=== PATIENT | female | born 1955 | race Caucasian/White ===

== ENCOUNTER 2020-09-17 08:13 | Outpatient (REF) | payer MEDICARE, MEDICAID, SELFPAY ==
[2020-09-17 09:10] LABS: MANUAL DIFF FLAG NO
[2020-09-17 09:18] LABS: Basophils Percent Auto 0.4 % (0-2); Eosinophils Absolute Auto 0.1 X10*3/uL (0.0-0.4); Eosinophils Percent Auto 0.8 % (0-4); Hematocrit 44.1 % (37-47); Hemoglobin 14.6 g/dl (12.0-16.0); Imm Gran Abs Auto 0.02 X10*3/uL (0.00-0.03); Imm Gran Pct Auto 0.3 % (0.0-0.4); Lymphocytes Absolute Auto 1.6 X10*3/uL (1.2-4.9); Lymphocytes Percent Auto 21.8 % (20-40); Mean Corpuscular HGB Conc 33.1 g/dl (31.0-35.0); Mean Corpuscular Hemoglobin 30.7 pg (27.0-33.0); Mean Corpuscular Volume 92.8 fL (80-98); Mean Platelet Volume 9.7 fL (9.4-12.3); Monocytes Absolute Auto 0.4 X10*3/uL (0.1-1.2); Neutrophils Absolute Auto 5.1 X10*3/uL (2.0-8.3); Neutrophils Percent Auto 70.7 % (45-73); Platelet Count 344 X10*3/uL (160-400); Red Blood Count 4.75 X10*6/uL (4.20-5.50); Red Cell Distribution Width 12.7 % (11.0-16.0); White Blood Count 7.2 X10*3/uL (4.8-10.8)
[2020-09-17 09:38] LABS: Alanine Aminotransferase 13 U/L (0-31); Albumin Level 4.3 g/dL (3.5-5.0); Alkaline Phosphatase 54 U/L (39-117); Anion Gap 15 (12-20); Aspartate Amino Transferase 15 U/L (5-31); Bilirubin Direct 0.2 mg/dL (0.0-0.5); Bilirubin Total 0.3 mg/dL (0.0-1.0); Blood Urea Nitrogen 20 mg/dL (9-16); Calcium 9.3 mg/dL (8.4-10.2); Carbon Dioxide 25 mmol/L (22-29); Chloride 104 mmol/L (96-108); Cholesterol 177 mg/dL; Estimated Glomerular Filt Rate > 60; Glucose Fasting 129 mg/dL (60-99); HDL Cholesterol 57 mg/dL; LDL Cholesterol Calculated 109 mg/dl; Potassium 4.6 mmol/l (3.3-5.1); Sodium 139 mmol/L (135-145); Total Protein 7.1 g/dL (6.5-8.0); Triglycerides 55 mg/dL
[2020-09-17 10:01] LABS: Free T4 (Free Thyroxine) 1.05 ng/dL (0.71-1.85); Thyroid Stimulating Hormone 0.19 uIU/mL (0.32-4.0)
== END 2020-09-17 08:14 | disposition home or self-care (01) ==
LOC: HO.LAB 08:13
DX: E78.5 Hyperlipidemia, unspecified (principal); R53.83 Other fatigue
CPT/HCPCS: 36415; 80053; 80061; 80076; 82248; 84439; 84443; 85025

== ENCOUNTER 2023-05-11 09:42 | Outpatient (AMB) | payer MEDICARE, MEDICAID, SELFPAY ==
--- NOTE | 2023-05-11 09:46 | A.OFFPC_ITS ---
Vital Signs 05/11/23 09:48 Height 5 ft 3.5 in Weight 125 lb 8 oz BMI 21.9 BP 140/80 H Blood Pressure Location Lt brachial Position Sitting Pulse 108 H Pulse Source Pulse Oximeter Pulse Oximetry (%) 94 Oxygen Delivery Method Room Air Intake Visit Reasons: Medications Intake Note: Patient is here to follow up on medication review. Complained of knee pain, depression and anxiety. Rivet Catcher Required: No Green Chain Marker: Not Required per policy Accompanied by: Self / Same As Patient Allergies No Known Allergies Allergy (Verified 05/11/23 09:47) Medication List - Last Reconciled 05/11/23 by Pepito Saunders MD cyclobenzaprine 10 mg PO TID cyproheptadine 4 mg PO BID hydrocodone-acetaminophen 7.5-300 mg 1 tab PO Q8H PRN ibuprofen 800 mg PO TID lorazepam 1 mg PO BID meloxicam 15 mg PO DAILY simvastatin 40 mg PO DAILY tramadol 50 mg PO Q8H PRN Tobacco use date assessed: 05/11/23 Fall risk assessment: No Falls in past year Last assessed Fall Risk: 05/11/23 Dental Screening Dental Screen Date: 05/11/23 Did you have a dental visit in the last 12 months?: Yes Did you have a dental problem in the last 6 months where you did not have access to dental care?: No Was dental information given to patient?: Patient has dentist HPI Medications HPI Details hyperlip and anxiety; muscle spasp [facility] Medical History (Updated 05/11/23 @ 10:06 by Pepito Saunders MD) Back pain Hyperlipidemia Neck pain Surgical History (Updated 05/11/23 @ 09:55 by MERLY Grier) History of bladder repair surgery History of dental surgery Family History Mother No problems noted. Father No problems noted. Social History Housing: House Alcohol intake: never Patient Tobacco Use Status: Current everyday Tobacco user Tobacco use type: Cigarette Cigarette Packs Per Day: 1 Cigarettes Per Day: 20 e-Cigarette/Vaping Use: Never Used Second Hand Smoke Exposure: No service: No Current occupational status: employed Cognitive needs: No Hearing needs: No Vision needs: Yes (glasses) Questionnaire PHQ-9 Over the last 2 weeks, how often have you been bothered by any of the following problems? 1. Little interest or pleasure in doing things: not at all 2. Feeling down, depressed, or hopeless: nearly every day 3. Trouble falling or staying asleep, or sleeping too much: not at all 4. Feeling tired or having little energy: several days 5. Poor appetite or overeating: not at all 6. Feeling bad about yourself - or that you are a failure or have let yourself or your family down: not at all 7. Trouble concentrating on things, such as reading the newspaper or watching television: not at all 8. Moving or speaking so slowly that other people could have noticed. Or the opposite - being so fidgety or restless that you have been moving around a lot more than usual: not at all 9. Thoughts that you would be better off or of hurting yourself in some way: not at all Total score: 4 Source: Developed by Drs. Maikel Mccray, Lyly Clayton, Jersey Mabry and colleagues, with an educational magali from [employer]. Thrive Questionnaire Date Thrive assessed: 05/11/23 I am a: Patient What is your living situation today?: I have a steady place to live Within the past 12 months, did the food you bought not last and you didn't have the money to get more?: Never true Within the past 12 months, did you worry whether your food would run out before you got money to buy more?: Never true Do you have trouble paying for medicines?: No Do you have trouble getting transportation to medical appointments?: No Do you have trouble paying your heating and electricity bill?: No Do you have trouble taking care of your child, family member or friend?: No Do you have trouble with day-to-day activities such as bathing, preparing meals, shopping, managing finances, etc.?: No Are you currently unemployed and looking for a job?: No Are you interested in more education?: No Currently or been in a relationship where the following occur: no concerns reported AUDIT C Alcohol Use Questionnaire (AUDIT-C) 1. How often do you have a drink containing alcohol?: Never Total Score: 0 WENDIE-7 AMB Questionnaire WENDIE-7 Date WENDIE - 7 assessed: 05/11/23 Feeling nervous, anxious, or on edge: 3 = Nearly every day Not being able to stop or control worryin = More than half the days Worrying too much about different things: 2 = More than half the days Trouble relaxin = Several days Being so restless that it is hard to sit still: 0 = Not at all Becoming easily annoyed or irritable: 1 = Several days Feeling afraid as if something awful might happen: 1 = Several days Total WENDIE-7 score (0-4 normal; 5-9 mild; 10-14 moderate; 15-21 severe): 10 Source: Developed by Drs. Maikel Mccray, Lyly Clayton, [place] Mabry and colleagues, with an educational magali from [employer]. Review of Systems Const Denies chills, Denies headache(s) and Denies weight loss ENT Denies headache(s) Card Denies chest pain, Denies syncope, Denies irregular heart rhythm and Denies dyspnea Resp Denies chest congestion, Denies cough and Denies dyspnea GI Denies abdominal pain, Denies change in stool character, Denies nausea and Denies vomiting Musc Denies deformity and Denies joint swelling Neuro Denies syncope and Denies headache(s) Physical exam (Primary Care) BMI result Body Mass Index 21.9 Tobacco/Smoking Status: Tobacco use Status Tobacco use date assessed 05/29/21 08/16/21 09:30 Patient Tobacco Use Status Current everyday Tobacco 08/16/21 09:30 Tobacco use type Cigarette 08/16/21 09:30 e-Cigarette/Vaping Use Never Used 08/16/21 09:30 Thrive Assessment: Date of Thrive Assessment Date Thrive assessed 05/29/21 08/16/21 09:30 Currently or been in a relationship where the following occur: no concerns reported Const General: cooperative, comfortable and no acute distress Resp Effort & Inspection: normal respiratory effort Auscultation: clear to auscultation bilaterally Percussion: percussion normal Cardio Jugular venous distension: no JVD Rate: regular rate Rhythm: regular rhythm GI Inspection: Yes normal to inspection Assessment and Plan Assessment & Plan (1) Hyperlipidemia: Code(s): E78.5 - Hyperlipidemia, unspecified Plan: do labs; same rx (2) Anxiety: Code(s): F41.9 - Anxiety disorder, unspecified Plan: stable (3) Neck pain: Code(s): M54.2 - Cervicalgia Plan: stable; same rx Medications: Refilled hydrocodone-acetaminophen 7.5-300 mg 1 tab PO Q8H PRN 20 tabs 0RF pain ibuprofen 800 mg PO TID 90 tabs 8RF meloxicam 15 mg PO DAILY 30 tabs 2RF simvastatin 40 mg PO DAILY 90 tabs 8RF tramadol 50 mg PO Q8H PRN 20 tabs 0RF pain cyclobenzaprine 10 mg PO TID 90 tabs 8RF cyproheptadine 4 mg PO BID 180 tabs 8RF lorazepam 1 mg PO BID 60 tabs 5RF Coding Level of Care Code Est Pt Level 4 (10791) Diagnoses Hyperlipidemia E78.5 Anxiety F41.9 Neck pain M54.2
[2023-05-11 09:48] VITALS: BP 140/80; PULSE 108; O2SAT 94; BMI 21.9
== END 2023-05-11 10:04 | disposition home or self-care (01) ==
PROVIDERS: PCP Internal Medicine; Visit Provider Internal Medicine
DX: E78.5 Hyperlipidemia, unspecified (principal); F41.9 Anxiety disorder, unspecified; M54.2 Cervicalgia
CPT/HCPCS: 99214

== ENCOUNTER 2023-08-18 08:50 | Outpatient (AMB) | payer MEDICARE, MEDICAID, SELFPAY ==
[2023-08-18 08:53] VITALS: BP 118/60; PULSE 85; O2SAT 98; BMI 22.0
--- NOTE | 2023-08-18 08:53 | MHC.PC.OV ---
Vital Signs 08/18/23 08:53 Height 5 ft 3.5 in Weight 126 lb BMI 22.0 BP 118/60 Blood Pressure Location Lt brachial Position Sitting Pulse 85 Pulse Source Pulse Oximeter Pulse Oximetry (%) 98 Oxygen Delivery Method Room Air Intake Visit Reasons: Annual exam Scuba Instructor Required: No Accompanied by: Self / Same As Patient Allergies No Known Allergies Allergy (Verified 08/18/23 08:54) Medication List - Last Reconciled 08/18/23 by Pepito Saunders MD cyclobenzaprine 10 mg PO TID cyproheptadine 4 mg PO BID hydrocodone-acetaminophen 7.5-300 mg 1 tab PO Q8H PRN ibuprofen 800 mg PO TID lorazepam 1 mg PO BID meloxicam 15 mg PO DAILY simvastatin 40 mg PO DAILY tramadol 50 mg PO Q8H PRN Tobacco use date assessed: 05/11/23 Fall risk assessment: No Falls in past year Last assessed Fall Risk: 08/18/23 Dental Screening Dental Screen Date: 08/18/23 Did you have a dental visit in the last 12 months?: Yes Did you have a dental problem in the last 6 months where you did not have access to dental care?: No Was dental information given to patient?: Patient has dentist HPI Annual exam HPI Details anxiety and hyperlipidemia PFSH Medical History Neck pain Back pain Hyperlipidemia Surgical History History of dental surgery History of bladder repair surgery Family History Mother No problems noted. Father No problems noted. Social History Housing: House Alcohol intake: never Patient Tobacco Use Status: Current everyday Tobacco user Tobacco use type: Cigarette Cigarette Packs Per Day: 1 Cigarettes Per Day: 20 e-Cigarette/Vaping Use: Never Used Second Hand Smoke Exposure: No service: No Current occupational status: employed Cognitive needs: No Hearing needs: No Vision needs: Yes (glasses) Questionnaire PHQ-9 Over the last 2 weeks, how often have you been bothered by any of the following problems? 1. Little interest or pleasure in doing things: not at all 2. Feeling down, depressed, or hopeless: nearly every day 3. Trouble falling or staying asleep, or sleeping too much: not at all 4. Feeling tired or having little energy: several days 5. Poor appetite or overeating: not at all 6. Feeling bad about yourself - or that you are a failure or have let yourself or your family down: not at all 7. Trouble concentrating on things, such as reading the newspaper or watching television: not at all 8. Moving or speaking so slowly that other people could have noticed. Or the opposite - being so fidgety or restless that you have been moving around a lot more than usual: not at all 9. Thoughts that you would be better off or of hurting yourself in some way: not at all Total score: 4 Depression Screening Interpretation: Negative Depression Screening Done: Yes 45359 - PHQ-9 Billing: Yes Source: Developed by Drs. Makiel Mccray, Lyly Clayton, [place] Mabry and colleagues, with an educational magali from [employer]. Thrive Questionnaire Date Thrive assessed: 05/11/23 AUDIT C Alcohol Use Questionnaire (AUDIT-C) 1. How often do you have a drink containing alcohol?: Never Total Score: 0 WENDIE-7 AMB Questionnaire WENDIE-7 Date WENDIE - 7 assessed: 05/11/23 Source: Developed by Drs. Maikel Mccray, Lyly Clayton, [place] Mabry and colleagues, with an educational magali from [employer]. Review of Systems Const Denies chills, Denies fatigue, Denies headache(s) and Denies weight loss Eyes Denies change in vision, Denies diplopia and Denies eye pain ENT Denies vertigo, Denies dizziness, Denies headache(s) and Denies nasal discharge Card Denies chest pain, Denies rapid heart rate and Denies dyspnea on exertion Resp Denies chest congestion, Denies cough, Denies pain with cough and Denies dyspnea on exertion GI Denies abdominal pain, Denies hematochezia and Denies change in bowel habits Musc Denies myalgias, Denies arthralgias and Denies joint swelling Skin/Breast Denies lesions and Denies unusual bruising Neuro Denies vertigo, Denies dizziness, Denies headache(s) and Denies focal weakness Endo Denies fatigue Physical exam (Primary Care) Vital Signs: Last Vital Signs Pulse 85 08/18/23 08:53 BP 118/60 08/18/23 08:53 Pulse Ox 98 08/18/23 08:53 Oxygen Delivery Method Room Air 08/18/23 08:53 BMI result Body Mass Index 22.0 Tobacco/Smoking Status: Tobacco use Status Tobacco use date assessed 05/11/23 08/18/23 08:59 Patient Tobacco Use Status Current everyday Tobacco 08/18/23 08:59 Tobacco use type Cigarette 08/18/23 08:59 e-Cigarette/Vaping Use Never Used 08/18/23 08:59 Are you ready to quit: No Tobacco cessation counseling provided: Yes Number of minutes spent counselin CPT code: 86685 - 4-10 Minutes PHQ-9: PHQ-9 Score PHQ-9: Total score 4 08/18/23 08:59 Depression Screening Interpretation: Negative Thrive Assessment: Date of Thrive Assessment Date Thrive assessed 05/11/23 08/18/23 08:59 Const General: cooperative, healthy appearing and no acute distress Orientation/consciousness: oriented to person, oriented to place and oriented to time HENMT Head: Yes normal to inspection, Yes normocephalic and Yes atraumatic Mouth: Normal oral and palatal mucosa present and tongue normal Throat: Yes posterior oropharynx normal and Yes uvula midline Eyes General: appearance normal, both eyes and all related structures Neck Neck: Yes normal visual inspection, Yes full ROM and Yes no lymphadenopathy Thyroid: Thyroid normal Carotids: normal carotid upstroke Chest Chest palpation & inspection: normal inspection of the chest Resp Effort & Inspection: normal respiratory effort and able to speak in complete sentences Auscultation: clear to auscultation bilaterally Cardio Jugular venous distension: no JVD Palpation: normal PMI Rate: regular rate Rhythm: regular rhythm Heart sounds: S1 normal heart sound present and S2 normal heart sound present GI Inspection: Yes normal to inspection Palpation (GI): Soft to palpation and No hepatosplenomegaly present Auscultation: normal bowel sounds General: Yes no CVA tenderness Back/Spine/Pelvis Back: no CVA tenderness Skin General skin exam: no rashes or lesions noted Neuro General: oriented to person, oriented to place and oriented to time Extrem General: Yes normal to inspection and Yes full ROM Assessment and Plan Assessment & Plan (1) Physical exam: Code(s): Z00.00 - Encounter for general adult medical examination without abnormal findings Plan: labs mammo and conoscopy (2) Anxiety: Code(s): F41.9 - Anxiety disorder, unspecified Plan: same rx (3) Hyperlipidemia: Code(s): E78.5 - Hyperlipidemia, unspecified Plan: stable Orders: Orders Comprehensive [place]. Panel Fast Today N28.9 - Disorder of kidney and ureter, unspecified Complete Blood Count Auto Diff Today D64.9 - Anemia, unspecified MM tomosynthesis screen imp BI Today Z12.31 - Encounter for screening mammogram for malignant neoplasm of breast Lipid Panel Today E78.5 - Hyperlipidemia, unspecified Thyroid Stimulating Hormone Today E03.9 - Hypothyroidism, unspecified Referrals Gastroenterology Referral Z12.11 - Encounter for screening for malignant neoplasm of colon Coding Level of Care Code Est Pt Prev Care >65y(12320) Diagnoses Physical exam Z00.00 Anxiety F41.9 Hyperlipidemia E78.5 Additional Codes Vital Signs *Quality* - CPT code: 72867 - 4-10 Minutes ([id number])
== END 2023-08-18 09:30 | disposition home or self-care (01) ==
PROVIDERS: PCP Internal Medicine; Visit Provider Internal Medicine
DX: Z00.00 Encounter for general adult medical examination without abnormal findings (principal); F41.9 Anxiety disorder, unspecified; E78.5 Hyperlipidemia, unspecified
CPT/HCPCS: 99397

== ENCOUNTER 2023-09-18 11:18 | Outpatient (REF) | payer MEDICARE, MEDICAID, SELFPAY ==
--- NOTE | ~2023-09-18 | MM_ITS ---
EXAMINATION: MM SCREENING DIGITAL BREAST TOMOSYNTHESIS, BILATERAL CLINICAL INFORMATION: Screening. Asymptomatic. COMPARISON: Mammography: This study is compared with prior exams dating back to 2015. TECHNIQUE: Digital breast tomosynthesis is performed in both the craniocaudal and mediolateral oblique views along with computer-aided detection (CAD). Synthesized 2D images are generated from the tomosynthesis. FINDINGS: There are scattered areas of fibroglandular density (ACR BI-RADS breast composition Category b). There are no significant masses, abnormal calcifications, or other abnormalities. MM/MM tomosynthesis screening BI IMPRESSION: No mammographic evidence of malignancy. ASSESSMENT: BI-RADS BI-RADS 1 - Negative RECOMMENDATION: Routine annual mammography screening. 1 year F/U This examination should not preclude the clinical evaluation of a suspicious palpable abnormality. This patient's information was entered into a reminder system with a target due date for their next mammogram.
== END 2023-09-18 11:19 | disposition home or self-care (01) ==
LOC: HO.MAMMO 11:18
PROVIDERS: PCP Internal Medicine; Visit Provider Internal Medicine
DX: Z12.31 Encounter for screening mammogram for malignant neoplasm of breast (principal)
CPT/HCPCS: 77063; 77067

== ENCOUNTER → 2023-09-18 11:30 | Outpatient (BNV) | payer MEDICARE, MEDICAID, SELFPAY | PROVIDERS: PCP Internal Medicine; Visit Provider Radiology Diagnostic Radiology | DX: Z12.31 Encounter for screening mammogram for malignant neoplasm of breast (principal) | CPT/HCPCS: 77063; 77067 ==

== ENCOUNTER 2023-10-03 07:44 | Outpatient (REF) | payer MEDICARE, MEDICAID, SELFPAY ==
[2023-10-03 10:51] LABS: MANUAL DIFF FLAG NO
[2023-10-03 11:09] LABS: Basophils Percent Auto 0.4 % (0-2); Eosinophils Absolute Auto 0.3 X10*3/uL (0.0-0.4); Eosinophils Percent Auto 4.1 % (0-4); Hematocrit 45.2 % (37.0-47.0); Hemoglobin 14.6 g/dl (12.0-16.0); Imm Gran Abs Auto 0.02 X10*3/uL (0.00-0.03); Imm Gran Pct Auto 0.3 % (0.0-0.4); Lymphocytes Absolute Auto 2.6 X10*3/uL (1.2-4.9); Lymphocytes Percent Auto 36.8 % (20-40); Mean Corpuscular HGB Conc 32.3 g/dl (31.0-35.0); Mean Corpuscular Hemoglobin 30.4 pg (27.0-33.0); Mean Platelet Volume 9.9 fL (9.4-12.3); Monocytes Absolute Auto 0.5 X10*3/uL (0.1-1.2); Monocytes Percent Auto 7.3 % (2-11); Neutrophils Absolute Auto 3.6 x10*3/uL (2.0-8.3); Neutrophils Percent Auto 51.1 % (45-73); Platelet Count 330 X10*3/uL (160-400); Red Blood Count 4.81 X10*6/uL (4.20-5.50); Red Cell Distribution Width 12.8 % (11.0-16.0); White Blood Count 7.1 X10*3/uL (4.8-10.8)
[2023-10-03 11:19] LABS: Alanine Aminotransferase 20 U/L (0-31); Albumin Level 4.2 g/dL (3.5-5.0); Alkaline Phosphatase 62 U/L (39-117); Anion Gap 13 (12-20); Aspartate Amino Transferase 21 U/L (5-31); Bilirubin Total 0.3 mg/dL (0.0-1.0); Blood Urea Nitrogen 20 mg/dL (9-16); Calcium 9.3 mg/dL (8.4-10.2); Carbon Dioxide 26 mmol/L (22-29); Chloride 108 mmol/L (96-108); Cholesterol 173 mg/dL (<200); Estimated Glomerular Filt Rate > 60; Glucose Fasting 117 mg/dL (60-99); HDL Cholesterol 52 mg/dL (>40); LDL Cholesterol Calculated 100 mg/dL (<100); Potassium 3.9 mmol/L (3.3-5.1); Sodium 143 mmol/L (135-145); Total Protein 6.9 g/dL (6.5-8.0); Triglycerides 106 mg/dL (<150)
== END 2023-10-03 07:45 | disposition home or self-care (01) ==
LOC: HO.HMGCLDS 07:44
PROVIDERS: PCP Internal Medicine; Visit Provider Internal Medicine
DX: D64.9 Anemia, unspecified (principal); E03.9 Hypothyroidism, unspecified; E78.5 Hyperlipidemia, unspecified; N28.9 Disorder of kidney and ureter, unspecified
CPT/HCPCS: 36415; 80053; 80061; 84443; 85025

== ENCOUNTER 2024-02-17 09:16 | Outpatient (AMB) | payer MEDICARE, MEDICAID, SELFPAY ==
[2024-02-17 09:21] VITALS: BP 134/82; PULSE 83; O2SAT 98; BMI 22.5
--- NOTE | 2024-02-17 09:21 | MHC.PC.OV ---
Vital Signs 02/17/24 09:21 Height 5 ft 3.5 in Weight 129 lb BMI 22.5 BP 134/82 Blood Pressure Location Lt brachial Position Sitting Pulse 83 Pulse Source Pulse Oximeter Pulse Oximetry (%) 98 Oxygen Delivery Method Room Air Intake Visit Reasons: 6mth f/u Apartment Leasing Agent: Not Required per policy Accompanied by: Self / Same As Patient Allergies No Known Allergies Allergy (Verified 02/17/24 09:21) Medication List - Last Reconciled 02/17/24 by Pepito Saunders MD cyclobenzaprine 10 mg PO TID cyproheptadine 4 mg PO BID hydrocodone-acetaminophen 7.5-300 mg 1 tab PO Q8H PRN ibuprofen 800 mg PO TID lorazepam 1 mg PO BID meloxicam 15 mg PO DAILY simvastatin 40 mg PO DAILY sulfamethoxazole-trimethoprim 800-160 mg (Bactrim DS) 1 tab PO BID tramadol 50 mg PO Q8H PRN Tobacco use date assessed: 02/17/24 Fall risk assessment: No Falls in past year Last assessed Fall Risk: 02/17/24 Dental Screening Dental Screen Date: 02/17/24 Did you have a dental visit in the last 12 months?: Yes Did you have a dental problem in the last 6 months where you did not have access to dental care?: No Was dental information given to patient?: Patient has dentist HPI 6mth f/u HPI Details hyperlipidemia on rx; doing well and compliant [facility] Medical History Neck pain Back pain Hyperlipidemia Surgical History History of dental surgery History of bladder repair surgery Family History Mother No problems noted. Father No problems noted. Social History Housing: House Alcohol intake: never Patient Tobacco Use Status: Current everyday Tobacco user Tobacco use type: Cigarette Cigarette Packs Per Day: 1 Cigarettes Per Day: 20 e-Cigarette/Vaping Use: Never Used Second Hand Smoke Exposure: No service: No Current occupational status: employed Cognitive needs: No Hearing needs: No Vision needs: Yes (glasses) Questionnaire PHQ-9 Over the last 2 weeks, how often have you been bothered by any of the following problems? 1. Little interest or pleasure in doing things: several days 2. Feeling down, depressed, or hopeless: nearly every day 3. Trouble falling or staying asleep, or sleeping too much: more than half the days 4. Feeling tired or having little energy: several days 5. Poor appetite or overeating: several days 6. Feeling bad about yourself - or that you are a failure or have let yourself or your family down: not at all 7. Trouble concentrating on things, such as reading the newspaper or watching television: not at all 8. Moving or speaking so slowly that other people could have noticed. Or the opposite - being so fidgety or restless that you have been moving around a lot more than usual: not at all 9. Thoughts that you would be better off or of hurting yourself in some way: not at all Total score: 8 Depression Screening Interpretation: Negative Depression Screening Done: Yes 21739 - PHQ-9 Billing: Yes Source: Developed by Drs. Maikel Mccray, Lyly Clayton, [place] Mabry and colleagues, with an educational magali from [employer]. Thrive Questionnaire Date Thrive assessed: 02/17/24 I am a: Patient What is your living situation today?: I have a steady place to live Within the past 12 months, did the food you bought not last and you didn't have the money to get more?: Never true Within the past 12 months, did you worry whether your food would run out before you got money to buy more?: Never true Do you have trouble paying for medicines?: No Do you have trouble getting transportation to medical appointments?: No Do you have trouble paying your heating and electricity bill?: No Do you have trouble taking care of your child, family member or friend?: No Do you have trouble with day-to-day activities such as bathing, preparing meals, shopping, managing finances, etc.?: No Are you currently unemployed and looking for a job?: No Are you interested in more education?: No Please select the resources that you would like help with: None THRIVE Score: 0 AUDIT C Alcohol Use Questionnaire (AUDIT-C) 1. How often do you have a drink containing alcohol?: Never Total Score: 0 WENDIE-7 AMB Questionnaire WENDIE-7 Date WENDIE - 7 assessed: 02/17/24 Feeling nervous, anxious, or on edge: 0 = Not at all Not being able to stop or control worryin = Not at all Worrying too much about different things: 0 = Not at all Trouble relaxin = Not at all Being so restless that it is hard to sit still: 0 = Not at all Becoming easily annoyed or irritable: 0 = Not at all Feeling afraid as if something awful might happen: 0 = Not at all Total WENDIE-7 score (0-4 normal; 5-9 mild; 10-14 moderate; 15-21 severe): 0 Source: Developed by Drs. Maikel Mccray, Lyly Clayton, [place] Mabry and colleagues, with an educational magali from [employer]. WENDIE-7 Assessment Billing WENDIE-7 Assessment Tool: WENDIE-7 Assessment 28157 Review of Systems Const Denies chills, Denies headache(s) and Denies weight loss ENT Denies headache(s) Card Denies chest pain, Denies syncope, Denies irregular heart rhythm and Denies dyspnea Resp Denies chest congestion, Denies cough and Denies dyspnea GI Denies abdominal pain, Denies change in stool character, Denies nausea and Denies vomiting Musc Denies deformity and Denies joint swelling Neuro Denies syncope and Denies headache(s) Physical exam (Primary Care) Vital Signs: Last Vital Signs Pulse 83 02/17/24 09:21 BP 134/82 02/17/24 09:21 Pulse Ox 98 02/17/24 09:21 Oxygen Delivery Method Room Air 02/17/24 09:21 BMI result Body Mass Index 22.5 Tobacco/Smoking Status: Tobacco use Status Tobacco use date assessed 02/17/24 02/17/24 09:23 Patient Tobacco Use Status Current everyday Tobacco 02/17/24 09:23 Tobacco use type Cigarette 02/17/24 09:23 e-Cigarette/Vaping Use Never Used 02/17/24 09:23 PHQ-9: PHQ-9 Score PHQ-9: Total score 8 02/17/24 09:28 Depression Screening Interpretation: Negative Thrive Assessment: Date of Thrive Assessment Date Thrive assessed 04/24/24 04/24/24 09:23 Const General: cooperative, comfortable, no acute distress and alert Neck Neck: Yes no lymphadenopathy Thyroid: Thyroid normal Resp Effort & Inspection: normal respiratory effort Auscultation: clear to auscultation bilaterally Percussion: percussion normal Cardio Jugular venous distension: no JVD Palpation: normal PMI Rate: regular rate Rhythm: regular rhythm Heart sounds: S1 normal heart sound present and S2 normal heart sound present GI Inspection: Yes normal to inspection Palpation (GI): No hepatosplenomegaly present Skin General skin exam: no rashes or lesions noted Extrem General: Yes no clubbing, cyanosis or edema Assessment and Plan Assessment & Plan (1) Hyperlipidemia: Code(s): E78.5 - Hyperlipidemia, unspecified Plan: stable; same rx Orders: Orders Complete Blood Count Auto Diff Today Z13.0 - Encounter for screening for diseases of the blood and blood-forming organs and certain disorders involving the immune mechanism Comprehensive [place]. Panel Fast Today Z13.9 - Encounter for screening, unspecified Thyroid Stimulating Hormone Today Z13.29 - Encounter for screening for other suspected endocrine disorder Lipid Panel Today Z13.220 - Encounter for screening for lipoid disorders Medications: New paroxetine HCl 20 mg PO DAILY 90 tabs 3RF Coding Level of Care Code Est Pt Level 3 (31248) Diagnoses Hyperlipidemia E78.5 Additional Codes WENDIE-7 Assessment Billing - WENDIE-7 Assessment Tool: WENDIE-7 Assessment [id number] ([id number])
== END 2024-02-17 09:41 | disposition home or self-care (01) ==
PROVIDERS: PCP Internal Medicine; Visit Provider Internal Medicine
DX: E78.5 Hyperlipidemia, unspecified (principal)
CPT/HCPCS: 99213

== ENCOUNTER 2024-08-19 08:53 | Outpatient (AMB) | payer MEDICARE, SELFPAY ==
[2024-08-19 08:55] VITALS: BP 138/64; PULSE 80; O2SAT 92; BMI 22.3
--- NOTE | 2024-08-19 08:57 | AM.OFFVISMDC ---
Intake Vital Signs 08/19/24 08:55 Height 5 ft 3.5 in Weight 128 lb BMI 22.3 BP 138/64 Blood Pressure Location Lt brachial Position Sitting Pulse 80 Pulse Source Pulse Oximeter Pulse Oximetry (%) 92 Oxygen Delivery Method Room Air Intake Visit Reasons: AWV [id number] Licensed Mortgage Loan Officer Required: No Accompanied by: Self / Same As Patient Allergies No Known Allergies Allergy (Verified 08/19/24 08:56) Medication List - Last Reconciled 08/22/24 by Pepito Saunders MD cyclobenzaprine 10 mg PO TID cyproheptadine 4 mg PO BID hydrocodone-acetaminophen 7.5-300 mg 1 tab PO Q8H PRN ibuprofen 800 mg PO TID lorazepam 1 mg PO BID meloxicam 15 mg PO DAILY paroxetine HCl 20 mg PO DAILY simvastatin 40 mg PO DAILY tramadol 50 mg PO Q8H PRN HPI AWV G0438 HPI Details hyperlipidemia; compliant on rx PFSH Medical History Neck pain Back pain Hyperlipidemia Surgical History History of dental surgery History of bladder repair surgery Family History Mother No problems noted. Father No problems noted. Social History Housing: House Alcohol intake: never Patient Tobacco Use Status: Current everyday Tobacco user Tobacco use type: Cigarette Cigarette Packs Per Day: 1 Cigarettes Per Day: 20 e-Cigarette/Vaping Use: Never Used Second Hand Smoke Exposure: No service: No Current occupational status: employed Cognitive needs: No Hearing needs: No Vision needs: Yes (glasses) Questionnaire Medicare Wellness Checkup [age] What gender do you identify with?: female During the past 4 weeks, how much have you been bothered by emotional problems such as feeling anxious, depressed, irritable, sad or downhearted, and blue?: moderately During the past 4 weeks, how much bodily pain have you generally had?: mild pain During the past 4 weeks, was someone available to help you if you needed & wanted help?: no, not at all During the past 4 weeks, what was the hardest physical activity you could do for at least 2 minutes?: light Can you get to places out of walking distance without help? (For eg., can you travel alone on buses, taxis or drive your car?): Yes Can you go shopping for groceries or clothes without someone's help?: Yes Can you prepare your own meals?: Yes Can you do your housework without help?: Yes Because of any health problems, do you need the help of another person with your personal care needs such as eating, bathing, dressing or getting around the house?: No Can you handle your own money without help?: Yes During the past 4 weeks, how would you rate your health in general?: good During the past 4 weeks how have things been going for you?: pretty well Are you having difficulties driving your car?: no Do you always fasten your seat belt when you are in a car?: yes, usually During past 4 weeks, have you been bothered by the following: never: Problems using the telephone?, sometimes: Falling or dizzy when standing up and Trouble eating well? and always: Teeth or denture problems? Have you fallen 2 or more times in the past year?: No Are you afraid of falling?: No Are you a smoker?: yes, but I'm not ready to quit During the past 4 weeks, how many drinks of wine, beer, or other alcoholic beverages did you have?: no alcohol at all Do you exercise for about 20 minutes 3 or more times a week?: no, I usually do not exercise this much Have you been given information to help with the following?: no: Hazards in your house that might hurt you? and no: Keeping track of your medications? How often do you have trouble taking medicines the way you have been told to take them?: I always take medicine as prescribed How confident are you that you can control & manage most of your health problems?: not very confident What is your race?: White Mini Mental State Exam (MMSE) Orientation What is the (year) (season) (date) (day) (month)?: year, season, date, day and month Where are we (state) (county) (town or city) (hospital) (floor)?: state, county, town or city, hospital/clinic and floor Score Score: 10 Activity of Daily Living Bathing - sponge bath, tub bath or shower: receives no assistance (gets in/out by self, if usual bathing means Dressing - getting clothes from closets & drawers, including inner/outer garments & fasteners.: gets clothes & gets completely dressed without help Toileting - going to the 'toilet room' for urine/bowel elimination & cleaning self/arranging clothes: goes to toilet room, cleans self, arranges clothes without help Transfer: moves in & out of bed and chair without help (may use support object) Continence: controls urination/bowel movements completely by self Feeding: feeds self without help Total Score: 0 Information obtained from: patient Using telephone: independent Traveling: independent Shopping: independent Preparing meals: independent Housework: independent Taking medicine: independent Managing money: independent Review of Systems Const Denies chills, Denies fatigue, Denies headache(s) and Denies weight loss Eyes Denies change in vision, Denies diplopia and Denies eye pain ENT Reports Normal hearing present, Denies vertigo, Denies dizziness, Denies headache(s) and Denies nasal discharge Card Denies chest pain, Denies rapid heart rate and Denies dyspnea on exertion Resp Denies chest congestion, Denies cough, Denies pain with cough and Denies dyspnea on exertion GI Denies abdominal pain, Denies hematochezia and Denies change in bowel habits Musc Denies myalgias, Denies arthralgias and Denies joint swelling Skin/Breast Denies lesions and Denies unusual bruising Neuro Reports Normal hearing present, Denies vertigo, Denies dizziness, Denies headache(s) and Denies focal weakness Endo Denies fatigue Physical Exam Vital Signs: Last Vital Signs Pulse 80 08/19/24 08:55 BP 138/64 08/19/24 08:55 Pulse Ox 92 08/19/24 08:55 Oxygen Delivery Method Room Air 08/19/24 08:55 BMI result Body Mass Index 22.3 Neuro Cranial nerves: Yes Normal hearing present Office Procedures Flu Questionnaire Does the patient have a severe egg allergy?: No Does the patient have severe life threatening allergies?: No Does the patient have a fever or illness today?: No Has the patient ever had Guillain-Benicia Syndrome?: No Has the patient ever had any past reaction to a flu shot?: No Immunizations Fluarix Triv [id number] (PF) 45 mcg (15 mcg x 3)/0.5 mL IM syringe Performing Provider: Pepito Saunders MD [facility] [place] [facility] Administered by: Analia Nesbitt RN on 08/19/24 09:14 Dose Route Admin Location Dispensed Lot Number Expiration Date NDC Manager Of Human Resources 0.5 mL IM Left Deltoid 0.5 mL [id number] 04/24/25 24975-299-55 [employer] VIS Given Date VIS Provided VIS Publication Date 08/19/24 Single Vaccine 21 Eligibility Eligibility Date Funding Source Not [facility] Eligible 08/19/24 Private Assessment & Plan Assessment & Plan (1) Encounter for initial annual wellness visit (AWV) in Medicare patient: Code(s): Z00.00 - Encounter for general adult medical examination without abnormal findings Plan: rhomberg and whisper tests nl' all forms given to patient (2) Hyperlipidemia: Code(s): E78.5 - Hyperlipidemia, unspecified Plan: stable; same rx Orders: Orders Lipid Panel 08/19/24 Z13.220 - Encounter for screening for lipoid disorders Influenza [id number] Immunization 08/19/24 Z23 - Encounter for immunization Thyroid Stimulating Hormone 08/19/24 Z13.29 - Encounter for screening for other suspected endocrine disorder Complete Blood Count Auto Diff 08/19/24 Z13.0 - Encounter for screening for diseases of the blood and blood-forming organs and certain disorders involving the immune mechanism Comprehensive [place]. Panel Fast 08/19/24 Z13.9 - Encounter for screening, unspecified Medications: Refilled meloxicam 15 mg PO DAILY 30 tabs 4RF Coding Level of Care Code Medicare First (G0438) Diagnoses Encounter for initial annual wellness visit (AWV) in Medicare patient Z00.00 Hyperlipidemia E78.5 CPT Codes Advance Care Planning - Advance Care Planning discussion: On file, no changes ([id number]) Advance Care Planning Advance Care Planning discussion: On file, no changes Forms completed: Health Care Proxy
== END 2024-08-19 09:12 | disposition home or self-care (01) ==
PROVIDERS: PCP Internal Medicine; Visit Provider Internal Medicine
DX: Z00.00 Encounter for general adult medical examination without abnormal findings (principal); E78.5 Hyperlipidemia, unspecified

== ENCOUNTER → 2024-08-19 08:53 | Outpatient (BNVA) | payer MEDICARE, SELFPAY | PROVIDERS: PCP Internal Medicine; Visit Provider Internal Medicine | DX: Z00.00 Encounter for general adult medical examination without abnormal findings (principal); Z23 Encounter for immunization; E78.5 Hyperlipidemia, unspecified; Z79.899 Other long term (current) drug therapy | CPT/HCPCS: 90471; 90656 ==

== ENCOUNTER 2024-11-21 09:27 | Outpatient (AMB) | payer MEDICARE, SELFPAY ==
--- NOTE | 2024-11-21 09:28 | MHC.PC.OV ---
Vital Signs 11/21/24 09:31 Height 5 ft 3.5 in Weight 131 lb 4 oz BMI 22.9 BP 140/72 H Blood Pressure Location Lt brachial Position Sitting Pulse 80 Pulse Source Pulse Oximeter Temp 96.2 F L Temp Source Skin Pulse Oximetry (%) 97 Oxygen Delivery Method Room Air Intake Visit Reasons: 3mth f/u Intake Note: Patient is here to follow up on HLD. Accountant Budget Required: No Material Planner: Not Required per policy Accompanied by: Self / Same As Patient Allergies No Known Allergies Allergy (Verified 11/21/24 09:30) Medication List - Last Reconciled 11/21/24 by Pepito Saunders MD cyclobenzaprine 10 mg PO TID cyproheptadine 4 mg PO BID hydrocodone-acetaminophen 7.5-300 mg 1 tab PO Q8H PRN ibuprofen 800 mg PO TID lorazepam 1 mg PO BID meloxicam 15 mg PO DAILY paroxetine HCl 20 mg PO DAILY simvastatin 40 mg PO DAILY tramadol 50 mg PO Q8H PRN Tobacco use date assessed: 11/21/24 Fall risk assessment: No Falls in past year Last assessed Fall Risk: 11/21/24 Dental Screening Dental Screen Date: 11/21/24 Did you have a dental visit in the last 12 months?: Yes Did you have a dental problem in the last 6 months where you did not have access to dental care?: No Was dental information given to patient?: Patient has dentist HPI 3mth f/u HPI Details hyperlipidemia on rx; compliant [facility] Medical History Neck pain Back pain Hyperlipidemia Surgical History History of dental surgery History of bladder repair surgery Family History Mother No problems noted. Father No problems noted. Social History Housing: House Alcohol intake: never Patient Tobacco Use Status: Current everyday Tobacco user Tobacco use type: Cigarette Cigarette Packs Per Day: 1 Cigarettes Per Day: 20 e-Cigarette/Vaping Use: Never Used Second Hand Smoke Exposure: Yes service: No Current occupational status: employed Cognitive needs: No Hearing needs: No Vision needs: Yes (glasses) Questionnaire PHQ-9 Over the last 2 weeks, how often have you been bothered by any of the following problems? 1. Little interest or pleasure in doing things: not at all 2. Feeling down, depressed, or hopeless: several days (Currently on medication) 3. Trouble falling or staying asleep, or sleeping too much: not at all 4. Feeling tired or having little energy: not at all 5. Poor appetite or overeating: not at all 6. Feeling bad about yourself - or that you are a failure or have let yourself or your family down: not at all 7. Trouble concentrating on things, such as reading the newspaper or watching television: not at all 8. Moving or speaking so slowly that other people could have noticed. Or the opposite - being so fidgety or restless that you have been moving around a lot more than usual: not at all 9. Thoughts that you would be better off or of hurting yourself in some way: not at all Total score: 1 Depression Screening Interpretation: Negative Depression Screening Done: Yes Source: Developed by Drs. Maikel Mccray, Lyly Clayton, Jersey Mabry and colleagues, with an educational magali from [employer]. Thrive Questionnaire Date Thrive assessed: 11/21/24 I am a: Patient What is your living situation today?: I have a steady place to live Within the past 12 months, did the food you bought not last and you didn't have the money to get more?: Never true Within the past 12 months, did you worry whether your food would run out before you got money to buy more?: Never true Do you have trouble paying for medicines?: No Do you have trouble getting transportation to medical appointments?: No Do you have trouble paying your heating and electricity bill?: No Do you have trouble taking care of your child, family member or friend?: No Do you have trouble with day-to-day activities such as bathing, preparing meals, shopping, managing finances, etc.?: No Are you currently unemployed and looking for a job?: No Are you interested in more education?: No Please select the resources that you would like help with: None Currently or been in a relationship where the following occur: No concerns reported THRIVE Score: 0 AUDIT C Alcohol Use Questionnaire (AUDIT-C) 1. How often do you have a drink containing alcohol?: Never Total Score: 0 WENDIE-7 AMB Questionnaire WENDIE-7 Date WENDIE - 7 assessed: 11/21/24 Feeling nervous, anxious, or on edge: 0 = Not at all Not being able to stop or control worryin = Not at all Worrying too much about different things: 0 = Not at all Trouble relaxin = Not at all Being so restless that it is hard to sit still: 0 = Not at all Becoming easily annoyed or irritable: 0 = Not at all Feeling afraid as if something awful might happen: 0 = Not at all Total WENDIE-7 score (0-4 normal; 5-9 mild; 10-14 moderate; 15-21 severe): 0 Source: Developed by Drs. Maikel Mccray, Lyly Clayton, Jersey Mabry and colleagues, with an educational magali from [employer]. Review of Systems Const Denies chills, Denies headache(s) and Denies weight loss ENT Denies headache(s) Card Denies chest pain, Denies syncope, Denies irregular heart rhythm and Denies dyspnea Resp Denies chest congestion, Denies cough and Denies dyspnea GI Denies abdominal pain, Denies change in stool character, Denies nausea and Denies vomiting Musc Denies deformity and Denies joint swelling Neuro Denies syncope and Denies headache(s) Physical exam (Primary Care) Vital Signs: Last Vital Signs Temp 96.2 F L 11/21/24 09:31 Pulse 80 11/21/24 09:31 BP 140/72 H 11/21/24 09:31 Pulse Ox 97 11/21/24 09:31 Oxygen Delivery Method Room Air 11/21/24 09:31 BMI result Body Mass Index 22.9 Tobacco/Smoking Status: Tobacco use Status Tobacco use date assessed 11/21/24 11/21/24 09:35 Patient Tobacco Use Status Current everyday Tobacco 11/21/24 09:35 Tobacco use type Cigarette 11/21/24 09:35 e-Cigarette/Vaping Use Never Used 11/21/24 09:35 PHQ-9: PHQ-9 Score PHQ-9: Total score 1 11/21/24 09:35 Depression Screening Interpretation: Negative Thrive Assessment: Date of Thrive Assessment Date Thrive assessed 11/21/24 11/21/24 09:35 Currently or been in a relationship where the following occur: No concerns reported Const General: cooperative, comfortable, no acute distress and alert Neck Neck: Yes no lymphadenopathy Thyroid: Thyroid normal Resp Effort & Inspection: normal respiratory effort Auscultation: clear to auscultation bilaterally Percussion: percussion normal Cardio Jugular venous distension: no JVD Palpation: normal PMI Rate: regular rate Rhythm: regular rhythm Heart sounds: S1 normal heart sound present and S2 normal heart sound present GI Inspection: Yes normal to inspection Palpation (GI): No hepatosplenomegaly present Skin General skin exam: no rashes or lesions noted Extrem General: Yes no clubbing, cyanosis or edema Coding Level of Care Code Est Pt Level 3 (16527) Diagnoses Hyperlipidemia E78.5 Assessment & Plan Assessment & Plan (1) Hyperlipidemia: Code(s): E78.5 - Hyperlipidemia, unspecified Category: Medical Plan: stable; same rx Medications: New paroxetine HCl 30 mg PO DAILY 30 tabs 2RF
[2024-11-21 09:31] VITALS: BP 140/72; PULSE 80; TEMP 35.7; O2SAT 97; BMI 22.9
== END 2024-11-21 11:03 | disposition home or self-care (01) ==
PROVIDERS: PCP Internal Medicine; Visit Provider Internal Medicine
DX: E78.5 Hyperlipidemia, unspecified (principal)

== ENCOUNTER → 2024-11-21 09:27 | Outpatient (BNVA) | payer MEDICARE, SELFPAY | PROVIDERS: PCP Internal Medicine; Visit Provider Internal Medicine | DX: E78.5 Hyperlipidemia, unspecified (principal) | CPT/HCPCS: 99212 ==

== ENCOUNTER 2025-05-10 12:48 | Outpatient (AMB) | payer MEDICARE, SELFPAY ==
--- NOTE | 2025-05-10 12:53 | A.OFFPC_ITS ---
Vital Signs 05/10/25 12:54 Height 5 ft 3.5 in Weight 127 lb BMI 22.1 BP 136/72 Blood Pressure Location Lt brachial Position Sitting Pulse 94 Pulse Source Pulse Oximeter Pulse Oximetry (%) 97 Oxygen Delivery Method Room Air Intake Visit Reasons: FENG DR Saunders Intake Note: Patient here transfer of care, c/o neck pain, cold toes Server Support Technician Required: No Accompanied by: Self / Same As Patient Allergies No Known Allergies Allergy (Verified 05/10/25 12:59) Medication List - Last Reconciled 05/10/25 by Eric Davis MD cyclobenzaprine 10 mg PO TID cyproheptadine 4 mg PO BID lorazepam 1 mg PO BID meloxicam 15 mg PO DAILY paroxetine HCl 20 mg PO DAILY simvastatin 40 mg PO DAILY tramadol 50 mg PO Q8H PRN Tobacco use date assessed: 11/21/24 Dental Screening Dental Screen Date: 11/21/[address] Saunders HPI Details complains also of having cold extremeties with neuropathic pain PFSH Medical History (Updated 05/10/25 @ 13:26 by Eric Davis MD) Anxiety Neck pain Back pain Hyperlipidemia Surgical History History of dental surgery History of bladder repair surgery Family History Mother No problems noted. Father No problems noted. Social History (Updated 05/10/25 @ 13:23 by Eric Davis MD) Housing: House Alcohol intake: never Patient Tobacco Use Status: Current everyday Tobacco user Tobacco use type: Cigarette Cigarette Packs Per Day: 1 Cigarettes Per Day: 20 Years Smoked: 1 pack a day sicne 20 years old e-Cigarette/Vaping Use: Never Used Second Hand Smoke Exposure: Yes service: No Current occupational status: employed Cognitive needs: No Hearing needs: No Vision needs: Yes (glasses) Questionnaire PHQ-9 Over the last 2 weeks, how often have you been bothered by any of the following problems? 1. Little interest or pleasure in doing things: not at all 2. Feeling down, depressed, or hopeless: not at all 3. Trouble falling or staying asleep, or sleeping too much: not at all 4. Feeling tired or having little energy: not at all 5. Poor appetite or overeating: more than half the days 6. Feeling bad about yourself - or that you are a failure or have let yourself or your family down: several days 7. Trouble concentrating on things, such as reading the newspaper or watching television: not at all 8. Moving or speaking so slowly that other people could have noticed. Or the opposite - being so fidgety or restless that you have been moving around a lot more than usual: not at all 9. Thoughts that you would be better off or of hurting yourself in some way: not at all Total score: 3 Source: Developed by Drs. Maikel Mccray, Lyly Clayton, Jersey Mabry and colleagues, with an educational magali from [employer]. Thrive Questionnaire Date Thrive assessed: 04/01/25 I am a: Patient What is your living situation today?: I have a steady place to live Within the past 12 months, did the food you bought not last and you didn't have the money to get more?: Never true Within the past 12 months, did you worry whether your food would run out before you got money to buy more?: Never true Do you have trouble paying for medicines?: No Do you have trouble getting transportation to medical appointments?: No Do you have trouble paying your heating and electricity bill?: No Do you have trouble taking care of your child, family member or friend?: No Do you have trouble with day-to-day activities such as bathing, preparing meals, shopping, managing finances, etc.?: No Are you currently unemployed and looking for a job?: No Are you interested in more education?: No Please select the resources that you would like help with: None Currently or been in a relationship where the following occur: No concerns reported THRIVE Score: 0 AUDIT C Alcohol Use Questionnaire (AUDIT-C) 1. How often do you have a drink containing alcohol?: Never Total Score: 0 WENDIE-7 AMB Questionnaire WENDIE-7 Date WENDIE - 7 assessed: 05/10/25 Feeling nervous, anxious, or on edge: 1 = Several days Not being able to stop or control worryin = Several days Worrying too much about different things: 1 = Several days Trouble relaxin = Several days Being so restless that it is hard to sit still: 0 = Not at all Becoming easily annoyed or irritable: 0 = Not at all Feeling afraid as if something awful might happen: 0 = Not at all Total WENDIE-7 score (0-4 normal; 5-9 mild; 10-14 moderate; 15-21 severe): 4 Source: Developed by Drs. Maikel Mccray, Lyly Clayton, Jersey Mabry and colleagues, with an educational magali from [employer]. Physical exam (Primary Care) Vital Signs: Last Vital Signs Pulse 94 05/10/25 12:54 BP 136/72 05/10/25 12:54 Pulse Ox 97 05/10/25 12:54 Oxygen Delivery Method Room Air 05/10/25 12:54 BMI result Body Mass Index 22.1 Tobacco/Smoking Status: Tobacco use Status Tobacco use date assessed 11/21/24 05/10/25 13:03 Patient Tobacco Use Status Current everyday Tobacco 05/10/25 13:23 Tobacco use type Cigarette 05/10/25 13:23 e-Cigarette/Vaping Use Never Used 05/10/25 13:23 PHQ-9: PHQ-9 Score PHQ-9: Total score 3 05/10/25 13:41 Thrive Assessment: Date of Thrive Assessment Date Thrive assessed 04/01/25 05/10/25 13:03 Currently or been in a relationship where the following occur: No concerns reported Const General: alert; No acute distress Eyes Conjunctivae: conjunctivae normal Resp Auscultation: clear to auscultation bilaterally Cardio Rate: regular rate Rhythm: regular rhythm GI Inspection: Yes normal to inspection Extrem General: Yes normal to inspection and No edema Immunizations pneumoc 20-carly conj-dip cr(PF) 0.5 mL IM syringe Performing Provider: Eric Davis MD Performing [facility]: [facility] Administered by: MERLY Bruner on 05/10/25 13:47 Dose Route Admin Location Dispensed Lot Number Expiration Date 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 Colon cancer screening Z12. Assessment & Plan Assessment & Plan (1) Hyperlipidemia: Code(s): E78.5 - Hyperlipidemia, unspecified Category: Medical Plan: Avoid fried foods, chicken skin, eggs, butter margarine, pastries and meat. Be it pork or beef they have a lot of cholesterol on simvastatin LDL goal of less than 130 and triglyceride of less than 150 (2) Generalized anxiety disorder: Code(s): F41.1 - Generalized anxiety disorder Category: Medical Plan: Continue with present medication on paroxetine and lorazepam as needed (3) Impaired glucose tolerance: Code(s): R73.02 - Impaired glucose tolerance (oral) Category: Medical Plan: Decrease the amount of carbohydrate intake, pasta, bread, rice and potatoes are all sugar and that is aside from all the sweet stuff, remember that fruits are good but they are Sweet also. (4) Hyperthyroidism: Code(s): E05.90 - Thyrotoxicosis, unspecified without thyrotoxic crisis or storm Category: Medical Plan: Discussed about the blood work showing hyperthyroidism and advised to be referred to Endocrinology (5) Neck pain: Code(s): M54.2 - Cervicalgia Category: Medical (6) Left hip pain: Code(s): M25.552 - Pain in left hip Category: Medical (7) Tobacco abuse: Code(s): Z72.0 - Tobacco use Category: Medical (8) Breast cancer screening by mammogram: Code(s): Z12.31 - Encounter for screening mammogram for malignant neoplasm of breast Category: Medical (9) Colon cancer screening: Code(s): Z12.11 - Encounter for screening for malignant neoplasm of colon Category: Medical Plan History of Present Illness The patient is a 70-year-old female presenting for a wellness visit and management of chronic conditions. The patient has a history of hypercholesterolemia, with an LDL level of 221 mg/dL noted in October. She is currently on simvastatin with a goal to reduce LDL to less than 130 mg/dL and triglycerides to less than 150 mg/dL. The patient has generalized anxiety disorder and is currently taking paroxetine and lorazepam as needed. She reports using lorazepam primarily in the morning to manage anxiety symptoms. The patient has impaired glucose tolerance with a fasting blood sugar of 115 mg/dL, which is above the normal range but below the threshold for diabetes. She acknowledges a family history of diabetes and is advised to monitor her sugar intake. The patient has been diagnosed with hyperthyroidism, with low TSH levels indicating an overactive thyroid. She has been referred to endocrinology for fu rther evaluation and management. The patient reports neck pain, which has not been evaluated with imaging or tests. She also reports left hip pain, particularly in the morning, affecting her mobility. The patient experiences cold sensations in her toes, which may be related to circulation issues. However, a physical exam indicated good pulse in the toes, suggesting adequate blood supply. The patient has a significant history of tobacco use, smoking a pack a day for 50 years. She has been advised to quit smoking due to the associated health risks, including lung cancer. 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 Review of Systems - Cardiovascular: Denies heart problems or history of heart attacks - Respiratory: Denies lung problems or asthma - Gastrointestinal: Denies ulcers - Endocrine: Reports weight loss, denies previous thyroid problems - Musculoskeletal: Reports neck and hip pain - Neurological: Denies seizures - Psychiatric: Reports anxiety, uses lorazepam for management - Hematologic/Lymphatic: Denies anemia Physical Exam General: Cooperative, healthy appearing, comfortable, no acute distress and well developed Orientation: Patient oriented x3 Limitations: No limitations Head: Normal to inspection Ears: Hearing grossly normal bilaterally Nose: Normal external nose present Face and sinus: Normal facial exam Eyes: Appearance normal, both eyes and all related structures Neck: Normal visual inspection and Yes full ROM Respiratory: Normal respiratory effort and able to speak in complete sentences. Clear to auscultation bilaterally Cardiovascular: Regular rate and rhythm. Normal S1 and S2 GI: Normal to inspection. Soft to palpation and nontender Skin: No rashes or lesions noted Neuro: Patient oriented x3 Extremities: Normal to inspection, but patient reports neck pain and left hip pain. Toes are very cold with funny feelings, but pulses are good. Results - Labs: LDL cholesterol 221 mg/dL, fasting blood sugar 115 mg/dL, TSH low indicating hyperthyroidism - Labs: Normal blood count, normal electrolytes, creatinine normal, BUN elevated at 31 indicating dehydration Plan The patient will continue on simvastatin to manage hypercholesterolemia, with a target LDL of less than 130 mg/dL and triglycerides less than 150 mg/dL. For generalized anxiety disorder, the patient will continue with paroxetine and lorazepam as needed, with caution advised regarding the potential for dependency on lorazepam. The patient has been referred to endocrinology for further evaluation and management of hyperthyroidism, as indicated by low TSH levels. For impaired glucose tolerance, the patient is advised to monitor sugar intake and a repeat fasting blood sugar test has been requested. The patient reports neck and hip pain, and imaging studies such as X-rays have been recommended to evaluate these complaints further. The patient is advised to quit smoking due to the associated health risks, and a referral for a lung cancer screening program has been offered. Preventative care measures include scheduling a mammogram, conducting a Cologuard test for colon cancer screening, and administering a pneumonia vaccination due to the patient's smoking history. Patient was informed and verbally consented to the use of an ambient scribe for clinic note documentation during this visit. Discussion Notes During the visit, I discussed the patient's hypercholesterolemia management plan, emphasizing the importance of maintaining LDL levels below 130 mg/dL and triglycerides below 150 mg/dL. We reviewed the patient's anxiety management, noting the use of paroxetine and lorazepam, and I cautioned about the potential for dependency on lorazepam. I referred the patient to endocrinology for hyperthyroidism management due to low TSH levels and discussed the need for monitoring sugar intake due to impaired glucose tolerance. We also addressed the patient's neck and hip pain, recommending imaging studies for further evaluation. I advised the patient on the importance of quitting smoking and offered a referral for a lung cancer screening program. Preventative care measures were discussed, including scheduling a mammogram, conducting a Cologuard test for colon cancer screening, and administering a pneumonia vaccination. Patient Instructions - Continue taking simvastatin as prescribed to manage cholesterol levels. - Take paroxetine and lorazepam as needed for anxiety, but be cautious of dependency. - Follow up with endocrinology for thyroid management. - Monitor sugar intake and prepare for a repeat fasting blood sugar test. - Schedule imaging studies for neck and hip pain evaluation. - Quit smoking and consider lung cancer screening. - Schedule a mammogram and complete the Cologuard test for colon cancer screening. - Receive a pneumonia vaccination due to smoking history. Orders: Orders XR hip LT min 2V Today M25.552 - Pain in left hip MM tomosynthesis screening BI Today Z12.31 - Encounter for screening mammogram for malignant neoplasm of breast Hemoglobin A1c Today R73.02 - Impaired glucose tolerance (oral) Comprehensive Met. Panel Today R73.02 - Impaired glucose tolerance (oral) Lipid Panel Today E78.00 - Pure hypercholesterolemia, unspecified, R73.02 - Impaired glucose tolerance (oral) Vitamin D 25-OH Total Today R73.02 - Impaired glucose tolerance (oral) XR DEXA axial skeleton Today M25.552 - Pain in left hip, M81.0 - Age-related osteoporosis without current pathological fracture Pneumococcal 20 Immunization Today Z23 - Encounter for immunization XR cervical spine 2V Today M54.2 - Cervicalgia Thyroid Stimulating Hormone Today R73.02 - Impaired glucose tolerance (oral) Free T4 (Free Thyroxine) Today R73.02 - Impaired glucose tolerance (oral) Vitamin B12 and Folate Today R73.02 - Impaired glucose tolerance (oral) Referrals Lung Cancer Screening Referral Z72.0 - Tobacco use Cologuard Test Z12.11 - Encounter for screening for malignant neoplasm of colon Medications: Refilled tramadol 50 mg PO Q8H PRN 20 tabs 0RF pain R73.02 - Impaired glucose tolerance (oral) lorazepam 1 mg PO BID 60 tabs 0RF R73.02 - Impaired glucose tolerance (oral)
[2025-05-10 12:54] VITALS: BP 136/72; PULSE 94; O2SAT 97; BMI 22.1
== END 2025-05-10 13:49 | disposition home or self-care (01) ==
LOC: HO.HMCH 12:49
PROVIDERS: PCP Internal Medicine; Visit Provider Internal Medicine
DX: E78.5 Hyperlipidemia, unspecified (principal); F41.1 Generalized anxiety disorder; R73.02 Impaired glucose tolerance (oral); E05.90 Thyrotoxicosis, unspecified without thyrotoxic crisis or storm; M54.2 Cervicalgia; M25.552 Pain in left hip; Z72.0 Tobacco use; Z12.31 Encounter for screening mammogram for malignant neoplasm of breast; Z12.11 Encounter for screening for malignant neoplasm of colon; Z23 Encounter for immunization

== ENCOUNTER → 2025-05-10 12:48 | Outpatient (BNVA) | payer MEDICARE, SELFPAY | PROVIDERS: PCP Internal Medicine; Visit Provider Internal Medicine | DX: Z23 Encounter for immunization (principal); E78.5 Hyperlipidemia, unspecified; F41.1 Generalized anxiety disorder; R73.02 Impaired glucose tolerance (oral); E05.90 Thyrotoxicosis, unspecified without thyrotoxic crisis or storm; M54.2 Cervicalgia; F17.200 Nicotine dependence, unspecified, uncomplicated; Z71.6 Tobacco abuse counseling | CPT/HCPCS: 90471; 90677; 99212 ==

== ENCOUNTER 2025-07-26 12:42 | Outpatient (REF) | payer MEDICARE, SELFPAY ==
--- NOTE | ~2025-07-26 | MM_ITS ---
EXAMINATION: DXA BONE DENSITY AXIAL HISTORY: M81.0 - Age-related osteoporosis without current pathological fracture TECHNIQUE: [employer] Dual energy absorptiometry (DEXA) of the lumbar spine, total left hip, and femoral neck was performed. COMPARISON: Comparison is made with the prior examination dated 12/13/2013. FINDINGS: The bone mineral density of the lumbar spine is 1.482 g/cm2, corresponding to a T-score of 2.6, and a Z-score of 4.6. This is indicative of normal bone mineral density. This represents a BMD change of 30.5% compared to the prior exam. This is statistically significant. The bone mineral density of the left total hip is 0.799 g/cm2, corresponding to a T-score of -1.7, and a Z-score of 0.0. This is indicative of osteopenia. This represents a BMD change of -10.9% compared to the prior exam. This is statistically significant. The bone mineral density of the left femoral neck is 0.745 g/cm2, corresponding to a T-score of -2.1, and a Z-score of -0.3. This is indicative of osteopenia. This represents a BMD change of -11.8% compared to the prior exam. FRACTURE RISK: The FRAX index suggests a ten year probability of major osteoporotic fracture of 11.3%, and of hip fracture 3.6%. MM/XR DEXA axial skeleton IMPRESSION: Based on bone mineral density, and according to World Health Organization (WHO) criteria, the diagnosis is consistent with osteopenia. Statistically, 68% of repeat scans fall within 1 SD (+/- 0.010 g/cm2 for AP spine L1-L4) and 1 SD (+/- 0.012 g/cm2 for femur total) FRAX is a trademark of the [employer]'s [employer] Met[employer], a World Health Organization (WHO) Collaborating Center. Electronically signed by: Maikel Avendano MD 07/26/2025 01:18 PM EDT
== END 2025-07-26 12:43 | disposition home or self-care (01) ==
LOC: HO.MAMMO 12:42
PROVIDERS: PCP Internal Medicine; Visit Provider Internal Medicine
DX: Z12.31 Encounter for screening mammogram for malignant neoplasm of breast (principal); M81.0 Age-related osteoporosis without current pathological fracture
CPT/HCPCS: 77063; 77067; 77080

== ENCOUNTER → 2025-07-26 13:00 | Outpatient (BNV) | payer MEDICARE, SELFPAY | PROVIDERS: PCP Internal Medicine; Visit Provider Radiology Diagnostic Radiology | DX: E28.39 Other primary ovarian failure (principal) | CPT/HCPCS: 77080 ==

== ENCOUNTER 2025-09-08 09:54 | Outpatient (AMB) | payer MEDICARE, SELFPAY ==
--- NOTE | 2025-09-08 08:00 | MHC.OFFVIS ---
Intake Visit Reasons: Current Smoker Allergies No Known Allergies Allergy (Verified 05/10/25 12:59) HPI HPI Current Smoker: Details: Initial visit for this 70yo smoker with a 25PYH. Patient started smoking at age 27 for 43 years at 1/2-3/4ppd. . Denies marijuana use. Denies second hand smoke exposure. Denies exposure to chemicals or substances like asbestos. . Denies known family history of lung cancer. - had lung cancer and 10 years ago. Denies personal history of cancers. Denies chest CT in last year. . Denies recent travel outside the [place]. Denies recent respiratory illness or recent hospitalization for respiratory issues. Denies testing positive for COVID. Admits receiving COVID Vaccine. . Denies fever, chills, new/worsening cough, hemoptysis, hoarseness or dysphagia. Denies significant chest pain, significant dyspnea or unintentional weight loss. Patient Lung Cancer Screening Questionnaire reviewed with patient by provider. . Shared Decision Making Completed. Patient meets criteria. Discussed in detail with patient, the risk vs benefit of LDCT screening. Patient consents to proceed with scan. Discussed smoking cessation. [facility] Medical History (Updated 09/08/25 @ 10:03 by Andreina Villagoemz PA-C) Generalized anxiety disorder Hyperlipidemia Impaired glucose tolerance Hyperthyroidism Osteopenia Nicotine dependence, cigarettes, uncomplicated Neck pain Back pain Surgical History (Updated 07/17/25 @ 10:50 by Andreina Villagomez PA-C) History of pelvic surgery History of dental surgery History of bladder repair surgery Family History Mother No problems noted. Father No problems noted. Social History (Updated 09/08/25 @ 10:03 by Andreina Villagomez PA-C) Housing: House Alcohol intake: never Patient Tobacco Use Status: Current everyday Tobacco user Tobacco use type: Cigarette Years Smoked: (onset 27yo, 1/2-3/4ppd x 43yrs, 25pyh) e-Cigarette/Vaping Use: Never Used Second Hand Smoke Exposure: Yes service: No Current occupational status: employed Cognitive needs: No Hearing needs: No Vision needs: Yes (glasses) Assessment & Plan Assessment & Plan (1) Nicotine dependence, cigarettes, uncomplicated: Comment: (onset 27yo, 1/2-3/4ppd x 43yrs, 25pyh) Code(s): F17.210 - Nicotine dependence, cigarettes, uncomplicated Category: Medical Plan - SDM visit completed today in office. - Patient meets criteria for LDCT for lung cancer screening purposes and is asymptomatic. - Smoking cessation counseling offered. Patients can always call [phone]. - Will arrange for a LDCT scan of the chest for screening purposes at [facility]. - Risks, benefits, and alternatives were discussed in detail and the patient agrees to proceed. - Risks discussed include but are not limited to: radiation exposure, anxiety during testing and while awaiting results, false negatives, false positives and possibility of additional intervention such as further imaging or surgical procedures for benign disease. - Benefits are obviously detection of lung cancer at an early stage which can lead to improved outcomes. - Discussed the importance of screening program compliance with adherence to yearly LDCT scan as scheduled - or sooner interval scans for personalized screening regimen. - Discussed follow up plan. Our office will send a letter discussing results and if needed set up phone call and office visit based on CT findings. - Patient educated on results categorization and the management decisions for suspicious findings potentially found on the screening LDCT scan. Any patient with a Lung RADS score of 3 or 4 will be reviewed by a multidisciplinary team at [facility] to form a plan of action in regards to scan findings. - If further work up is warranted for a suspicious lung finding this will be followed by the Lung Cancer Screening program in conjunction with the Thoracic Surgery Department at [facility]. - A copy of the office note and LDCT will be sent to the patient's PCP - as well as documentation on any associated further plans of care. - Incidental findings on LDCT are the PCP's responsibility. These findings are indicated with an S finding on the LDCT Assessment. A note discussing the findings will be sent to the PCP who is then responsible for further management. - All questions answered.? Coding Level of Care Code Lung Cancer Screening G0296 Diagnoses Nicotine dependence, cigarettes, uncomplicated F17.210
== END 2025-09-08 10:26 | disposition home or self-care (01) ==
LOC: HO.HPS 09:55
PROVIDERS: PCP Internal Medicine; Referring Provider Internal Medicine; Visit Provider Physician Assistant Medical
DX: F17.210 Nicotine dependence, cigarettes, uncomplicated (principal)
CPT/HCPCS: G0296

== ENCOUNTER 2025-09-08 10:11 | Outpatient (REF) | payer MEDICARE, SELFPAY ==
--- NOTE | ~2025-09-08 | CT_ITS ---
EXAMINATION: CT LUNG SCREENING HISTORY: F17.210 - Nicotine dependence, cigarettes, uncomplicated TECHNIQUE: Low dose axial images were obtained from the sternal notch to upper abdomen without IV contrast per standard departmental protocol. Sagittal and coronal reformatted images were also obtained and reviewed. One or more of the following techniques was used for dose reduction: Automated exposure control, adjustment of the mA and/or kV according to patient size, use of iterative reconstruction technique. DLP: 43 mGy-cm COMPARISON: There are no prior studies available for comparison. FINDINGS: Lung nodules: Mild biapical pleural and parenchymal scarring. Mild emphysema. Small 2 mm upper lobe nodules, for example in the left upper lobe axial image 45 series 6 and right upper lobe axial image 32 and 50 series 6. 1 x 4 mm peripheral or subpleural perifissural nodule along the minor fissure axial image 70 series 6. 2 adjacent 2 mm lingular nodules axial image 79 series 6. 4 mm right middle lobe nodule axial image 104 series 6. 2 mm peripheral or subpleural right middle lobe nodule axial image 120 series 6. Central airways are clear. Emphysema: mild Coronary Calcification: moderate Aortic Arch Calcification: moderate Potentially Significant Incidentals : 1.2 x 1.5 cm anterior superior mediastinal mass. This may represent an exophytic thyroid nodule arising from the inferior isthmus. Cannot exclude enlarged lymph node or thymic lesion. Additional Chest Findings: Normal heart size. No pericardial effusion. Mild aortic valve calcification. Thoracic aorta normal in caliber. There is no pleural or pericardial effusion. Visualized upper abdomen: Low-attenuation liver lesions measuring 1.5 cm axial image 56 and 62 series 3 not well characterized. Severe atherosclerotic disease of the visualized upper abdominal aorta. Question small punctate right renal stone. Degenerative changes of the spine. No axillary adenopathy or chest wall mass. CT/CT lung screening IMPRESSION: Mild biapical pleural-parenchymal scarring and emphysema. Small pulmonary nodules, largest measuring 4 mm in the right middle lobe. LUNG-RADS ASSESSMENT: MANAGEMENT: Continue annual screening with LDCT in 12 months Category S: 1.5 cm anterior superior mediastinal mass. This may represent an exophytic thyroid nodule. Follow-up thyroid ultrasound recommended. Two low-attenuation liver lesions not well characterized. Follow-up liver ultrasound recommended. Electronically signed by: Gia Paul MD 09/08/2025 12:08 PM RICK
== END 2025-09-08 10:12 | disposition home or self-care (01) ==
LOC: HO.CT 10:11
PROVIDERS: PCP Internal Medicine; Visit Provider Physician Assistant Medical
DX: Z12.2 Encounter for screening for malignant neoplasm of respiratory organs (principal); F17.210 Nicotine dependence, cigarettes, uncomplicated
CPT/HCPCS: 71271; G0296

== ENCOUNTER → 2025-09-08 10:21 | Outpatient (BNV) | payer MEDICARE, SELFPAY | PROVIDERS: PCP Internal Medicine; Visit Provider Radiology Diagnostic Radiology | DX: F17.210 Nicotine dependence, cigarettes, uncomplicated (principal) | CPT/HCPCS: 71271 ==

== ENCOUNTER 2025-09-30 09:01 | Outpatient (REF) | payer MEDICARE, SELFPAY ==
[2025-09-30 12:09] LABS: Alanine Aminotransferase 18 U/L (0-31); Albumin Level 4.3 g/dL (3.5-5.0); Alkaline Phosphatase 59 U/L (39-117); Anion Gap 12 (12-20); Aspartate Amino Transferase 33 U/L (5-31); Blood Urea Nitrogen 15 mg/dL (9-16); Calcium 9.3 mg/dL (8.4-10.2); Carbon Dioxide 25 mmol/L (22-29); Chloride 109 mmol/L (96-108); Cholesterol 158 mg/dL (<200); Estimated Glomerular Filt Rate > 60; HDL Cholesterol 51 mg/dL (>40); Potassium 4.0 mmol/L (3.3-5.1); Sodium 142 mmol/L (135-145); Total Protein 7.0 g/dL (6.5-8.0); Triglycerides 103 mg/dL (<150)
[2025-09-30 12:10] LABS: Free T4 (Free Thyroxine) 1.14 ng/dL (0.71-1.85); Thyroid Stimulating Hormone 0.47 uIU/mL (0.32-4.0)
[2025-09-30 12:33] LABS: Folate 11.7 ng/mL (> or = 4.0); Vitamin B12 1488 pg/mL (200-900)
== END 2025-09-30 09:02 | disposition home or self-care (01) ==
LOC: HO.HMGCLDS 09:01
PROVIDERS: PCP Internal Medicine; Visit Provider Internal Medicine
DX: R73.02 Impaired glucose tolerance (oral) (principal); E78.00 Pure hypercholesterolemia, unspecified; Z13.21 Encounter for screening for nutritional disorder
CPT/HCPCS: 36415; 80053; 80061; 82306; 82607; 82746; 83036; 84439; 84443

== ENCOUNTER 2025-10-10 16:33 | Outpatient (AMB) | payer MEDICARE, SELFPAY ==
[2025-10-10 16:54] VITALS: BP 174/68; PULSE 96; RESP 18; O2SAT 97; BMI 22.0
--- NOTE | 2025-10-10 16:54 | A.OFFPC_ITS ---
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 Required: No Accompanied by: Self / Same As Patient Allergies No Known Allergies Allergy (Verified 10/10/25 16:55) Medication List - Last Reconciled 10/10/25 by Eric Davis MD amoxicillin 500 mg PO TID cyclobenzaprine 10 mg PO TID cyproheptadine 4 mg PO BID lidocaine 5% 1 patch topical DAILY lorazepam 1 mg PO BID meloxicam 15 mg PO DAILY paroxetine HCl 20 mg PO DAILY simvastatin 40 mg PO DAILY tramadol 50 mg PO Q8H PRN Tobacco use date assessed: 10/10/25 Fall risk assessment: No Falls in past year Last assessed Fall Risk: 10/10/25 Dental Screening Dental Screen Date: 10/10/25 Did you have a dental visit in the last 12 months?: No Did you have a dental problem in the last 6 months where you did not have access to dental care?: No Was dental information given to patient?: No [facility] Medical History (Updated 10/10/25 @ 17:46 by Eric Davis MD) Generalized anxiety disorder Hyperlipidemia Impaired glucose tolerance Hyperthyroidism Osteopenia Nicotine dependence, cigarettes, uncomplicated Neck pain Back pain Surgical History History of pelvic surgery History of dental surgery History of bladder repair surgery Family History Mother No problems noted. Father No problems noted. Social History Housing: House Alcohol intake: never Patient Tobacco Use Status: Current everyday Tobacco user Tobacco use type: Cigarette Years Smoked: (onset 27yo, 1/2-3/4ppd x 43yrs, 25pyh) e-Cigarette/Vaping Use: Never Used Second Hand Smoke Exposure: Yes service: No Current occupational status: employed Cognitive needs: No Hearing needs: No Vision needs: Yes (glasses) Questionnaire Thrive Questionnaire Date Thrive assessed: 10/10/25 I am a: Patient What is your living situation today?: I have a steady place to live Within the past 12 months, did the food you bought not last and you didn't have the money to get more?: Never true Within the past 12 months, did you worry whether your food would run out before you got money to buy more?: Never true Do you have trouble paying for medicines?: No Do you have trouble getting transportation to medical appointments?: No Do you have trouble paying your heating and electricity bill?: No Do you have trouble taking care of your child, family member or friend?: No Do you have trouble with day-to-day activities such as bathing, preparing meals, shopping, managing finances, etc.?: No Are you currently unemployed and looking for a job?: No Are you interested in more education?: No Please select the resources that you would like help with: None Currently or been in a relationship where the following occur: No concerns reported THRIVE Score: 0 WENDIE-7 AMB Questionnaire WENDIE-7 Date WENDIE - 7 assessed: 05/10/25 Source: Developed by Drs. Maikel Mccray, Lyly Clayton, Jersey Mabry and colleagues, with an educational magali from [employer]. Physical exam (Primary Care) Vital Signs: Last Vital Signs Pulse 96 10/10/25 16:54 Resp 18 10/10/25 16:54 BP 174/68 H 10/10/25 16:54 Pulse Ox 97 10/10/25 16:54 Oxygen Delivery Method Room Air 10/10/25 16:54 BMI result Body Mass Index 22.0 Tobacco/Smoking Status: Tobacco use Status Tobacco use date assessed 10/10/25 10/10/25 16:59 Patient Tobacco Use Status Current everyday Tobacco 10/10/25 16:59 Tobacco use type Cigarette 10/10/25 16:59 e-Cigarette/Vaping Use Never Used 10/10/25 16:59 Thrive Assessment: Date of Thrive Assessment Date Thrive assessed 10/10/25 10/10/25 16:59 Currently or been in a relationship where the following occur: No concerns reported Const General: alert; No acute distress Eyes Conjunctivae: conjunctivae normal Resp Auscultation: clear to auscultation bilaterally Cardio Rate: regular rate Rhythm: regular rhythm GI Inspection: Yes normal to inspection Extrem General: Yes normal to inspection and No edema Coding Level of Care Code Est Pt Level 4 (44982) Add On Problem Visit Only Diagnoses CAD (coronary artery disease) I25.10 Hyperlipidemia E78.5 Impaired glucose tolerance R73.02 Osteopenia M85.80 Nicotine dependence, cigarettes, uncomplicated F17.210 Right hip pain M25.551 Nasal congestion R09.81 Liver mass R16.0 Mediastinal mass J98.59 Assessment & Plan Assessment & Plan (1) CAD (coronary artery disease): Code(s): I25.10 - Atherosclerotic heart disease of [place] coronary artery without angina pectoris Category: Medical Plan: Control the cholesterol, weight, blood pressure, patient is advised to be on aspirin (2) Hyperlipidemia: Code(s): E78.5 - Hyperlipidemia, unspecified Category: Medical Plan: Avoid fried foods, chicken skin, eggs, butter margarine, pastries and meat. Be it pork or beef they have a lot of cholesterol LDL goal of less than 70 and triglyceride of less than 150 on simvastatin 40 mg once a day (3) Impaired glucose tolerance: Code(s): R73.02 - Impaired glucose tolerance (oral) Category: Medical Plan: Decrease the amount of carbohydrate intake, pasta, bread, rice and potatoes are all sugar and that is aside from all the sweet stuff, remember that fruits are good but they are Sweet also. (4) Osteopenia: Comment: (Bone Dexa Femoral T-score: -2.1 - 07/2025) Code(s): M85.80 - Other specified disorders of bone density and structure, unspecified site Category: Medical Plan: Bone density showing osteopenia July 2025 (5) Nicotine dependence, cigarettes, uncomplicated: Comment: (onset 27yo, 1/2-3/4ppd x 45yrs, 25pyh) Code(s): F17.210 - Nicotine dependence, cigarettes, uncomplicated Category: Medical Plan: Lung cancer screening program with the CT scan showing right lobe pulmonary nodules 4 mm continue with yearly CT (6) Right hip pain: Code(s): M25.551 - Pain in right hip Category: Medical (7) Nasal congestion: Code(s): R09.81 - Nasal congestion Category: Medical (8) Liver mass: Code(s): R16.0 - Hepatomegaly, not elsewhere classified Category: Medical (9) Mediastinal mass: Comment: ategory S: 1.5 cm anterior superior mediastinal mass. This may represent an exophytic thyroid nodule. Follow-up thyroid ultrasound recommended. Two low-attenuation liver lesions not well characterized. Follow-up liver ultrasound recommended. Code(s): J98.59 - Other diseases of mediastinum, not elsewhere classified Category: Medical Plan History of Present Illness The patient is a 70 year old female presenting for follow-up on CT scan results and review of lab work. Her past medical history is significant for a history of smoking, impaired glucose tolerance, hypercholesterolemia, hyperthyroidism, generalized anxiety disorder, and coronary artery disease. She was last seen in April 2025. A CT scan on September 08, 2025, as part of a lung cancer screening program, revealed mild biapical pleural scarring, emphysema, and small pulmonary nodules, the largest being 4 mm in the right middle lobe. Incidental findings included an enlarged thyroid and spots on the liver. A bone density scan in July 2025 showed osteopenia in the hip and spine, with a reported 10% decrease. The patient reports associated hip pain. Recent lab work from October and September showed a normal blood count and electrolytes, and good renal function. Her hemoglobin A1c was 6.0% and fasting blood sugar was 112 mg/dL. Her LDL cholesterol was 87 mg/dL on simvastatin 40 mg, with normal liver function tests. She has a family history of diabetes. The patient is a current smoker, consuming about a pack of cigarettes per day. She reports being lazy for a couple of months and not keeping active. She also reports experiencing significant stress related to issues with a tenant. Today, she reports symptoms of a sinus infection with congestion and is requesting antibiotics and pain patches for her hip. She denies any fever. Health Maintenance - Mammogram is up to date. - Bone density scan performed in July 2025 is up to date, revealing osteopenia. - Currently participating in a lung cancer screening program with a CT scan performed in August 2025. - Advised to take vitamin D, 2000 units daily, and ensure adequate calcium intake for bone health. - Counseled on the importance of physical activity for bone health. - Counseled on dietary modifications for prediabetes and hypercholesterolemia. - Smoking cessation was discussed and nicotine patches were prescribed. Social History - Substance Use: The patient is a current smoker, consuming approximately one pack of cigarettes per day. - Level of activity: She reports being inactive and lazy for the past couple of months. - Nutrition: The patient states she is a chocolate person and finds it hard to control her sugar intake, which is relevant given her prediabetic status. 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 Review of Systems - ENT: Reports sinus congestion. - Constitutional: Denies fever. - Musculoskeletal: Reports right hip pain and recent knee pain. - Respiratory: Reports having problems with her lungs. Physical Exam Results - CT scan (September 08, 2025): Showed mild biapical pleural scarring, emphysema, and small pulmonary nodules with the largest being 4 mm in the right middle lobe. - Incidental findings on CT included an enlarged thyroid and liver spots. - Bone density scan (July 2025): Showed osteopenia of the hip and spine with a 10% decrease, while the hip density was normal. - Blood work (October): Normal blood count. - Blood work (September): Normal electrolytes, good renal function, elevated blood sugar at 112 mg/dL, hemoglobin A1c of 6.0%, LDL cholesterol of 87 mg/dL, and normal liver function tests. Plan Patient was informed and verbally consented to the use of an ambient scribe for clinic note documentation during this visit. 1. Hypercholesterolemia The patient's LDL cholesterol is 87 mg/dL, which is above the goal of less than 70 mg/dL for a patient with coronary artery disease. Since she is already on the highest dose of simvastatin (40 mg), the medication will be switched to a stronger statin. A prescription for a low dose of rosuvastatin will be sent to the pharmacy. Cholesterol levels will be rechecked in three months to assess the effectiveness of the new medication. 2. Prediabetes The patient's fasting blood sugar is elevated at 112 mg/dL and her hemoglobin A1c is 6.0%, placing her in the prediabetic range. She has a maternal history of diabetes. No medication is indicated at this time, but the patient was counseled to be careful with her sugar intake and diet. 3. Osteopenia A recent bone density scan showed osteopenia of the hip and spine. The patient was advised to supplement with vitamin D 2000 units daily, especially during winter months, and ensure adequate dietary calcium. The importance of staying physically active for bone health was also emphasized. 4. Lung Cancer Screening/Pulmonary Nodules The patient is in a lung cancer screening program due to her smoking history, and a CT scan showed a 4 mm pulmonary nodule in the right middle lobe, along with emphysema. The nodule is too small for biopsy, so the plan is to continue with yearly CT scans for monitoring. 5. Incidental Thyroid And Liver Findings The recent chest CT scan incidentally revealed an enlarged thyroid and spots on the liver. Ultrasounds of the thyroid and liver were ordered in August to further evaluate these findings, but the patient has not yet completed them. The orders for these ultrasounds will be re-issued to ensure they are completed. 6. Sinusitis The patient presented with a new complaint of sinus congestion, requesting an antibiotic. After discussing that most sinus issues are viral, amoxicillin was prescribed to be taken three times a day for 10 days per the patient's request. It was recommended to use an [id number] sinus rinse as a better alternative for cleaning the sinuses. 7. Hip Pain The patient requested patches for right hip pain. Lidocaine patches will be prescribed, but the patient was informed that insurance may not cover the cost. 8. Tobacco Use The patient is a current smoker, using about a pack per day, and expressed a wish to quit. Nicotine replacement therapy was prescribed, starting with the 21 mg patch, followed by tapering doses of 14 mg and 7 mg patches. The patient was strongly advised not to smoke while using the patch due to the risk of nicotine overdose and heart attack. She was also counseled not to start the patches until she is fully ready to quit smoking. 9. Coronary Artery Disease The patient is advised to be on aspirin for her coronary artery disease. Discussion Notes I reviewed the results of the recent chest CT scan with the patient. I explained that the 4 mm lung nodule is too small to biopsy and the current recommendation is to monitor it with a repeat CT scan in one year. I also discussed the incidental findings of an enlarged thyroid and spots on the liver. I informed her that ultrasounds of both areas were ordered to investigate these findings further and that we would re-issue the orders as she had not yet completed the tests. We reviewed her lab results, noting her LDL cholesterol of 87 is above the goal of <70. I explained the options, and she agreed to switch from simvastatin to a stronger medication, rosuvastatin, to better control her cholesterol and reduce her cardiac risk. We will recheck her labs in 3 months. I discussed her elevated blood sugar and A1c of 6.0%, which indicates prediabetes. I counseled her on the importance of diet, especially given her family history of diabetes. Regarding her bone density, I explained that the test showed osteopenia and recommended daily vitamin D and calcium supplements, along with staying active. For her requested antibiotic for sinus symptoms, I explained that many sinus infections are viral but agreed to prescribe amoxicillin. I also recommended a sinus rinse as a more effective way to clean the sinuses. For her hip pain, I prescribed lidocaine patches and warned her that insurance may not cover them. Finally, we discussed smoking cessation. I prescribed a course of nicotine patches and stressed the importance of not smoking while using the patch due to the risk of heart attack. Patient Instructions - You will be switching your cholesterol medicine from simvastatin to rosuvastatin. - Please get blood work done in three months to check your cholesterol levels. - For your bone health, take Vitamin D 2000 units every day and make sure you get enough calcium in your diet. - It is also important to stay physically active. - Be mindful of your sugar intake, as your blood sugar levels are higher than normal. - A prescription for amoxicillin for your sinus infection has been sent to your pharmacy. - Take it three times a day for 10 days. - Using an [id number] sinus rinse kit can also help clean your sinuses. - A prescription for lidocaine patches for your hip pain has been sent. - Be aware that your insurance may not pay for this. - Nicotine patches have been prescribed to help you quit smoking. - It is very important that you DO NOT smoke while using the patch, as this can be dangerous for your heart. - Only start using the patches when you are ready to stop smoking completely. - We have re-ordered ultrasounds for your thyroid and liver. - You should receive a call to schedule these appointments. - Continue with your yearly CT scan to monitor the spot on your lung. Orders: Orders Comprehensive Met. Panel 3 Months I25.10 - Atherosclerotic heart disease of [place] coronary artery without angina pectoris Hemoglobin A1c 3 Months I25.10 - Atherosclerotic heart disease of [place] coronary artery without angina pectoris Lipid Panel 3 Months E78.00 - Pure hypercholesterolemia, unspecified, I25.10 - Atherosclerotic heart disease of [place] coronary artery without angina pectoris Complete Blood Count Auto Diff 3 Months I25.10 - Atherosclerotic heart disease of [place] coronary artery without angina pectoris Medications: New lidocaine 5% leave on most painful area for up to 12 hrs 1 patch topical DAILY 30 ea 1RF M25.551 - Pain in right hip amoxicillin 500 mg PO TID 30 caps 0RF R09.81 - Nasal congestion rosuvastatin 10 mg PO DAILY 30 tabs 5RF I25.10 - Atherosclerotic heart disease of [place] coronary artery without angina pectoris nicotine 1 patch transdermal DAILY 28 ea 0RF F17.210 - Nicotine dependence, cigarettes, uncomplicated nicotine 1 patch transdermal DAILY 28 ea 0RF F17.210 - Nicotine dependence, cigarettes, uncomplicated nicotine 1 patch transdermal Q24H 28 ea 1RF F17.210 - Nicotine dependence, cigarettes, uncomplicated Refilled lorazepam 1 mg PO BID 60 tabs 0RF R73.02 - Impaired glucose tolerance (oral) Discontinued simvastatin Discontinued Reason: Doctor's Order 40 mg PO DAILY 90 tabs 3RF
== END 2025-10-10 18:06 | disposition home or self-care (01) ==
LOC: HO.HMCH 16:34
PROVIDERS: PCP Internal Medicine; Visit Provider Internal Medicine
DX: I25.10 Atherosclerotic heart disease of native coronary artery without angina pectoris (principal); E78.5 Hyperlipidemia, unspecified; R73.02 Impaired glucose tolerance (oral); M85.80 Other specified disorders of bone density and structure, unspecified site; F17.210 Nicotine dependence, cigarettes, uncomplicated; M25.551 Pain in right hip; R09.81 Nasal congestion; R16.0 Hepatomegaly, not elsewhere classified; J98.59 Other diseases of mediastinum, not elsewhere classified

== ENCOUNTER → 2025-10-10 16:33 | Outpatient (BNVA) | payer MEDICARE, SELFPAY | PROVIDERS: PCP Internal Medicine; Visit Provider Internal Medicine | DX: Z71.2 Person consulting for explanation of examination or test findings (principal); I25.10 Atherosclerotic heart disease of native coronary artery without angina pectoris; E78.5 Hyperlipidemia, unspecified; R73.02 Impaired glucose tolerance (oral); M85.80 Other specified disorders of bone density and structure, unspecified site; M25.551 Pain in right hip; R09.81 Nasal congestion; R16.0 Hepatomegaly, not elsewhere classified; J98.59 Other diseases of mediastinum, not elsewhere classified; F17.210 Nicotine dependence, cigarettes, uncomplicated; Z79.899 Other long term (current) drug therapy | CPT/HCPCS: 99212 ==